=== PATIENT | female | born 1960 | race Caucasian/White ===

== ENCOUNTER → 2021-08-27 14:05 | Outpatient (BNVA) | payer MEDICAID, SELFPAY | PROVIDERS: Family Provider Family Medicine; Visit Provider Internal Medicine | DX: B19.20 Unspecified viral hepatitis C without hepatic coma (principal); Z12.11 Encounter for screening for malignant neoplasm of colon | CPT/HCPCS: 82105; 86705; 86706; 87340 ==

== ENCOUNTER 2021-09-21 06:51 | Day surgery (SDC) | payer MEDICAID, SELFPAY ==
[2021-09-17 13:47] VITALS: BMI 15.6
--- NOTE | 2021-09-21 07:18 | P.HP_ITS ---
Same Day Surgery H&P Indication for Procedure/HPI DATE OF PROCEDURE: September 21, 2021 CHIEF COMPLAINT/INDICATIONFOR SURGICAL PROCEDURE: Screening PREOP DIAGNOSIS: Screen PLANNED PROCEDURE: Operation Date: 09/21/21 08:30 Proposed Procedures p Colonoscopy 84643,Z12.11(Not Applicable) - Shad Pradhan MD Medications/Allergies* Home Medications Medication Instructions Recorded Confirmed Type lisinopril 10 mg tablet 10 mg PO DAILY 08/13/21 09/17/21 History propranolol 10 mg tablet 10 mg PO BID 08/13/21 09/17/21 History desipramine 25 mg tablet 25 mg PO BID 08/27/21 09/17/21 History Allergies/Adverse Reactions Allergy/AdvReac Type Severity Reaction Status Date / Time Penicillins Allergy Intermediate Unknown Verified 08/27/21 13:28 Pertinent History/Comorbid Conditions* Family History (Updated 08/13/21 @ 16:10 by Ellie Vizcaino) CAD (coronary artery disease) Father Hypertension Mother Social History Smoking and tobacco status: current every day smoker Alcohol intake: never Pertinent Exam Findings alert, oriented x 3, clear to auscultation bilaterally, regular rate & rhythm, operative site marked and procedure specific exam findings Recommendations Surgery/Procedure today Coding Level of Care Code [employer] for Joe Escamilla
[2021-09-21 07:40] VITALS: BP 168/104; PULSE 72; RESP 18; TEMP 36.5; O2SAT 97
[2021-09-21] MEDS: sodium chloride 0.9% 1,000 ML 30 ML IV (07:51)
--- NOTE | 2021-09-21 08:55 | ANES.PREANE2 ---
Pre-Anesthetic Assessment Height/Weight: Height 1.7 m Weight 45.359 kg Temp Pulse Resp BP Pulse Ox 97.7 F 72 18 168/104 97 09/21/21 07:40 09/21/21 07:40 09/21/21 07:40 09/21/21 07:40 09/21/21 07:40 Preop Diagnosis: Screen Operation Date: 09/21/21 08:30 Proposed Procedures p Colonoscopy 87885,Z12.11(Not Applicable) - Shad Pradhan MD Familial anesthetic complications: None Was Beta [place] Delia taken within 24 hours: Yes Was Clonidine taken within 24 hours: N/A Last intake: Intake Last Liquid Date 09/20/21 Last Liquid Time 23:00 Last Solid Date 09/19/21 Last Solid Time 18:00 Social No alcohol and No tobacco Exam alert, oriented x 3 and regular rate & rhythm diminished breath sounds b/l Airway Submandibular: within normal limits Cervical ROM: within normal limits Mallampati: Class I Dentition: chipped Comments: Comments: Chipped upper front tooth History/ROS No significant complaints Pulmonary None reported CV/HEM Hypertension None reported Hepatic Hepatitis (C) GI None reported Metabolic None reported Musc/skel None reported Neuropsych None reported Anesthetic Plan ASA status: 3 (61 year old daily smoker w/ HTN and hepatitis C ) Anesthesia: Anesthesia Evaluation and General Other: I discussed with the patient risks, goals, and benefits of MAC and general anesthesia. We discussed spectrum of MAC anesthesia including conversion to general as well as possibility of recall of intraoperative stimuli including discomfort/pain. Patient agrees to proceed with MAC. Risk of > 500 ml blood loss (7ml/kg in children): No Medications/Allergies Home Medications Medication Instructions Recorded Confirmed Last Taken Type lisinopril 10 mg tablet 10 mg PO DAILY 08/13/21 09/17/21 09/20/21 History propranolol 10 mg tablet 10 mg PO BID 08/13/21 09/21/21 09/21/21 History desipramine 25 mg tablet 25 mg PO BID 08/27/21 09/17/21 09/21/21 History Allergies Allergy/AdvReac Type Severity Reaction Status Date / Time Penicillins Allergy Intermediate Unknown Verified 08/27/21 13:28 Current Medications Generic Name Dose Route Start Last Admin Trade Name Freq PRN Reason Stop Dose Admin Sodium Chloride 1,000 mls @ 30 mls/hr 09/21/21 07:30 09/21/21 07:51 Sodium Chloride 0.9% IV 30 mls/hr .Q24H [place] Administration PFSH Anesthesia Family History Mother Hypertension Father CAD (coronary artery disease) Social History Smoking and tobacco status: current every day smoker Alcohol intake: never Data Anesthesia Cardiac Studies: No Data to Display
[2021-09-21 09:51] VITALS: BP 126/81; PULSE 66; RESP 12; TEMP 36.7; O2SAT 98
--- NOTE | 2021-09-21 09:55 | ANE.PACU2 ---
Documented by User: Tirso Mabry CRNA 09/21/21 09:55 Inpatient post-anesthesia follow up: Airway intact: Yes Vital signs: Temperature 98.1 F Pulse Rate 66 Respiratory Rate 12 Blood Pressure 126/81 Pulse Oximetry 98 Oxygen Delivery Me thod Room Air Oxygen Flow Rate Fraction of Inspir ed Oxygen Hydration adequate: Yes Nausea and vomiting: No Pain level: 1 Mental status: Baseline
[2021-09-21 10:03] VITALS: BP 109/83; PULSE 66; RESP 16; O2SAT 99
== END 2021-09-21 10:35 | disposition home or self-care (01) ==
PROVIDERS: Visit Provider Internal Medicine
PROC: 0DJD8ZZ Inspection of Lower Intestinal Tract, Via Natural or Artificial Opening Endoscopic (ICD-10-PCS; CPT 45378; principal; 2021-09-21 08:30)
DX: Z12.11 Encounter for screening for malignant neoplasm of colon (principal); D12.3 Benign neoplasm of transverse colon; F17.210 Nicotine dependence, cigarettes, uncomplicated; Z82.49 Family history of ischemic heart disease and other diseases of the circulatory system; I10 Essential (primary) hypertension; Z86.16 Personal history of COVID-19
CPT/HCPCS: 45385; 88305; J2704; J7030

== ENCOUNTER 2021-12-29 06:28 | Outpatient (CLI) | payer MEDICAID, SELFPAY ==
--- NOTE | 2021-12-29 07:00 | US_ITS ---
WS: [id number] RIGHT UPPER QUADRANT ULTRASOUND HISTORY: HEP C COMPARISON: None available. Liver: 13.2 cm in length. Liver is normal size. Surface of the liver is smooth. There is a small hypo echoic nodule towards the diaphragmatic surface of the RIGHT lobe measuring 9 x 7 x 12 mm. No edema a dditional mass identified. No bile duct dilatation. Portal Vein: Normal hepatopetal flow with monophasic waveform. Gallbladder: Normally distended gallbladder with no stones or wall thickening. CBD: 0.4 cm Pancreas: As visualized are negative. The entire pancreas is not seen. Right kidney: 11.6 cm in length. Normal size and echogenicity. No hydronephrosis or mass. Aorta and IVC: Unremarkable abdominal aorta and IVC. No ascites. US/US liver [id number] IMPRESSION: 1. Normal gallbladder. 2. Hypoechoic mass RIGHT lobe of the liver towards the diaphragmatic surface m easures 9 x 7 x 12 mm. Nonspecific by ultrasound. Additional imaging evaluation required. Follow-up hepatic protocol by MRI or CT recommended. MRI liver with and without contrast. CT can be performed with contrast only in 2 phases.
== END 2021-12-29 06:29 | disposition home or self-care (01) ==
LOC: RAD 06:29
PROVIDERS: PCP Nurse Practitioner Family; Visit Provider Internal Medicine
DX: B19.20 Unspecified viral hepatitis C without hepatic coma (principal); R16.0 Hepatomegaly, not elsewhere classified
CPT/HCPCS: 76705

== ENCOUNTER → 2023-11-15 11:27 | Outpatient (BNVA) | payer MEDICAID, SELFPAY | PROVIDERS: PCP Nurse Practitioner Family; Visit Provider Student in an Organized Health Care Education/Training Program | DX: B19.20 Unspecified viral hepatitis C without hepatic coma (principal) | CPT/HCPCS: 36415; 80053; 81596; 85025; 86705; 86706; 86709; 86803; 87340; 87522; 87806; 87902 ==

== ENCOUNTER 2023-11-21 09:15 | Outpatient (CLI) | payer MEDICAID, SELFPAY ==
--- NOTE | 2023-11-21 09:30 | USR_ITS ---
PROCEDURE INFORMATION: Exam: US Abdomen; Limited Exam date and time: 11/21/2023 9:23 AM Age: 63 years old Clinical indication: Condition or disease; Liver condition; Other: Unspecified viral hepatitis c; Additional info: B19.20 - unspecified viral hepatitis c without hepatic coma TECHNIQUE: Imaging protocol: Real time ultrasound of the abdomen with image documentation. Limited exam focused on the region of clinical interest. COMPARISON: US liver [id number] 12/29/2021 6:35 AM FINDINGS: Liver: Normal size of the liver. Normal morphology. There is a 1.1 x 0.8 x 0.8 cm lobulated hyperechoic focus in the posterior right hepatic lobe similar to 2021 study, most consistent with hemangioma. Mild prominence of the portal triads and portal venous mcleod, suggestive of hepatic parenchymal edema/hepatitis. Gallbladder: No appreciable cholelithiasis or gallbladder wall thickening. Biliary ducts: No intra or extrahepatic biliary dilatation. Pancreas: Pancreas not well seen due to bowel gas. US/US liver [id number] IMPRESSION: 1. No evidence of hepatic cirrhosis. 2. 11 mm hyperechoic focus in the posterior right hepatic lobe most suggestive of hemangioma, similar to 2021 study. No other focal lesion.
== END 2023-11-21 09:16 | disposition home or self-care (01) ==
LOC: RAD 09:16
PROVIDERS: PCP Nurse Practitioner Family; Visit Provider Student in an Organized Health Care Education/Training Program
DX: B19.20 Unspecified viral hepatitis C without hepatic coma (principal)
CPT/HCPCS: 76705

== ENCOUNTER 2024-04-27 13:04 | Outpatient (CLI) | payer MEDICAID, SELFPAY ==
[2024-04-28 18:25] LABS: HEP C RNA Viral Load Quant <1.18 NOT DETECTED Log IU/mL (NOT DETECTED); HEP C RNA Viral Load Quant <15 NOT DETECTED IU/mL (NOT DETECTED)
== END 2024-04-27 13:05 | disposition home or self-care (01) ==
LOC: LAB 13:05
PROVIDERS: PCP Family Medicine; Visit Provider Student in an Organized Health Care Education/Training Program
DX: B19.20 Unspecified viral hepatitis C without hepatic coma (principal)
CPT/HCPCS: 36415; 87522